=== PATIENT | female | born 1960 | race Caucasian/White ===

== ENCOUNTER → 2016-04-11 | Outpatient (CLI) | payer BC, OTHER ==
[~2016-04-11] MED LIST: ACHD5005 PO; CETI-176 PO; CHOL2000 PO; CITA20TA4 PO; CRAN1TAB PO; CYAN500T2 PO; DICY10CA59 PO; I COOL PO; LACT1CAP69 PO; LVT.1T PO; MULT1CAP27 PO; PEPPERMINT PO; [UNRECOGNIZED DRUG - CODE] PO
--- OUTSIDE RECORDS SUMMARY | 2016-04-11 10:54 | XMS REPORT | Continuity of Care Document ---
Author Author [facility] Organization [facility] Address Unknown Phone Unavailable Care Team Providers Care Lab Support Technician Name Role Phone Unknown, Unknown PCP Unavailable Source Comments Some departments are not documenting in the electronic medical record. If you do not see the information that you expected, contact Release of Information in the Health Information Management department at [phone] for further assistance in locating additional records.[facility] Active Allergies and Adverse Reactions No Known Allergies Current Medications Prescription Sig. Disp. Refills Start End Date Status Date Black Cohosh 20 mg tab Take by mouth. Active PEPPERMINT OIL PO Take by mouth. Active ERGOCALCIFEROL (VITAMIN Take by mouth. Active D2) (VITAMIN D PO) cyanocobalamin(+) Take 100 mcg by mouth Active (VITAMIN B-12) 100 mcg daily. tablet dicyclomine (BENTYL) 10 Take 10 mg by mouth four Active mg capsule times daily. LORATADINE (CLARITIN PO) Take by mouth. Active lactobacillus rhamnosus Take 1 Cap by mouth twice Active GG (LACTOBACILLUS daily with meals. RHAMNOSUS (GG)) 15 billion cell cpSP citalopram (CELEXA) 10 mg Take 10 mg by mouth Active tablet daily. MULTIVITAMINS WITH Take by mouth. Active FLUORIDE (MULTI-VITAMIN PO) Cranberry 400 mg cap Take by mouth. Active Active Problems Not on file Social History Tobacco Use Types Packs/Day Years Used Date Never Smoker Smokeless Tobacco: Never Used Alcohol Use Drinks/Week oz/Week Comments No Last Filed Vital Signs Vital Sign Reading Time Taken Blood Pressure 142/78 06/02/2014 10:05 AM CDT Pulse 65 06/02/2014 10:05 AM CDT Temperature 36.7 C (98 F) 06/02/2014 10:05 AM CDT Respiratory Rate 18 06/02/2014 10:05 AM CDT Height 1.695 m (5' 6.73") 06/02/2014 10:05 AM CDT Weight 110.315 kg (243 lb 3.2 06/02/2014 10:05 AM CDT oz) Body Mass Index 38.4 06/02/2014 10:05 AM CDT Oxygen Saturation 97% 06/02/2014 10:05 AM CDT Plan of Care Health Maintenance Due Date Last Done Comments Physical (Comprehensive) 1969 Exam Pertussis Vaccine 1973 Tetanus Vaccine 11/25/1979 Cervical Cancer Screening 11/25/1983 Breast Cancer Screening 2002 Colorectal Cancer 2012 Screening Influenza Vaccine 11/18/2015 Results from Last 3 Months Not on file
== END ==
LOC: FS 10:50
PROVIDERS: ATTEND Internal Medicine Hematology & Oncology
DX: C73 Malignant neoplasm of thyroid gland (principal); E89.0 Postprocedural hypothyroidism; Z79.899 Other long term (current) drug therapy
CPT/HCPCS: 99213

== ENCOUNTER → 2016-07-11 | Outpatient (CLI) | payer OTHER | LOC: FS 10:28 | PROVIDERS: ATTEND Internal Medicine Hematology & Oncology | DX: C73 Malignant neoplasm of thyroid gland (principal); E89.0 Postprocedural hypothyroidism; Z79.899 Other long term (current) drug therapy | CPT/HCPCS: 99213 ==

== ENCOUNTER 2017-01-09 11:40 | Outpatient (RCR) | payer OTHER | END 2017-04-09 | disposition home or self-care (01) | LOC: ONC 11:40 | PROVIDERS: ATTEND Internal Medicine Hematology & Oncology | DX: C73 Malignant neoplasm of thyroid gland (principal); E89.0 Postprocedural hypothyroidism; Z79.899 Other long term (current) drug therapy | CPT/HCPCS: 99213 ==

== ENCOUNTER 2017-07-10 12:38 | Outpatient (RCR) | payer OTHER | END 2017-10-08 | disposition home or self-care (01) | LOC: ONC 12:38 | PROVIDERS: ATTEND Internal Medicine Hematology & Oncology | DX: C73 Malignant neoplasm of thyroid gland (principal); E89.0 Postprocedural hypothyroidism; D72.820 Lymphocytosis (symptomatic); Z79.899 Other long term (current) drug therapy | CPT/HCPCS: 99213 ==

== ENCOUNTER 2017-12-31 12:45 | Outpatient (RCR) | payer OTHER | END 2018-03-31 | disposition home or self-care (01) | LOC: ONC 12:45 | PROVIDERS: ATTEND Internal Medicine Hematology & Oncology | DX: C73 Malignant neoplasm of thyroid gland (principal); E89.0 Postprocedural hypothyroidism; Z79.899 Other long term (current) drug therapy | CPT/HCPCS: 99213 ==

== ENCOUNTER 2018-08-14 09:16 | Outpatient (RCR) | payer BC, OTHER ==
[2018-06-17 11:44] LABS: BASOPHILS % (AUTO) 0 % (0-10); EOSINOPHILS # (AUTO) 0.3 10^3/uL (0.0-0.3); EOSINOPHILS % (AUTO) 4 % (0-10); HEMATOCRIT 38 % (35-52); HEMOGLOBIN 13.2 G/DL (11.5-16.0); LYMPHOCYTES # (AUTO) 2.4 X 10^3 (1.0-4.0); LYMPHOCYTES % (AUTO) 31 % (12-44); MEAN CORPUSCULAR HEMOGLOBIN 29 PG (25-34); MEAN CORPUSCULAR HGB CONC 35 G/DL (32-36); MEAN CORPUSCULAR VOLUME 84 FL (80-99); MEAN PLATELET VOLUME 9.8 FL (7.4-10.4); MONOCYTES # (AUTO) 0.6 X 10^3 (0.0-1.0); MONOCYTES % (AUTO) 7 % (0-12); NEUTROPHILS # (AUTO) 4.5 X 10^3 (1.8-7.8); NEUTROPHILS % (AUTO) 57 % (42-75); PLATELET COUNT 292 10^3/uL (130-400); RED CELL DISTRIBUTION WIDTH 13.1 % (10.0-14.5); WHITE BLOOD COUNT 7.8 10^3/uL (4.3-11.0)
[2018-06-17 12:02] LABS: ALANINE AMINOTRANSFERASE 28 U/L (0-55); ALBUMIN 4.2 GM/DL (3.2-4.5); ALKALINE PHOSPHATASE 84 U/L (40-136); BILIRUBIN,TOTAL 0.2 MG/DL (0.1-1.0); BUN/CREATININE RATIO 20; CALCIUM 9.6 MG/DL (8.5-10.1); CARBON DIOXIDE 25 MMOL/L (21-32); CHLORIDE 107 MMOL/L (98-107); CREATININE SERUM 0.69 MG/DL (0.60-1.30); GFR ESTIMATED > 60; GLUCOSE 81 MG/DL (70-105); SODIUM 141 MMOL/L (135-145); TOTAL PROTEIN 7.4 GM/DL (6.4-8.2)
== END 2018-09-15 | disposition home or self-care (01) ==
LOC: ONC 09:16
PROVIDERS: ATTEND Internal Medicine Hematology & Oncology
DX: C73 Malignant neoplasm of thyroid gland (principal); E89.0 Postprocedural hypothyroidism; Z79.899 Other long term (current) drug therapy
CPT/HCPCS: 36415; 80053; 84432; 84443; 85025; 86800; 88184; 88185; 99213

== ENCOUNTER 2018-12-30 13:37 | Outpatient (RCR) | payer BC ==
[2018-12-23 15:06] LABS: BASOPHILS # (AUTO) 0.1 10^3/uL (0.0-0.1); BASOPHILS % (AUTO) 1 % (0-10); EOSINOPHILS # (AUTO) 0.3 10^3/uL (0.0-0.3); EOSINOPHILS % (AUTO) 4 % (0-10); HEMATOCRIT 40 % (35-52); HEMOGLOBIN 13.5 G/DL (11.5-16.0); LYMPHOCYTES # (AUTO) 3.3 X 10^3 (1.0-4.0); LYMPHOCYTES % (AUTO) 41 % (12-44); MEAN CORPUSCULAR HEMOGLOBIN 29 PG (25-34); MEAN CORPUSCULAR HGB CONC 34 G/DL (32-36); MEAN CORPUSCULAR VOLUME 86 FL (80-99); MEAN PLATELET VOLUME 9.7 FL (7.4-10.4); MONOCYTES # (AUTO) 0.6 X 10^3 (0.0-1.0); MONOCYTES % (AUTO) 7 % (0-12); NEUTROPHILS # (AUTO) 3.7 X 10^3 (1.8-7.8); NEUTROPHILS % (AUTO) 47 % (42-75); PLATELET COUNT 288 10^3/uL (130-400); RED CELL DISTRIBUTION WIDTH 12.2 % (10.0-14.5)
[2018-12-23 15:24] LABS: ALANINE AMINOTRANSFERASE 22 U/L (0-55); ALBUMIN 4.3 GM/DL (3.2-4.5); ALKALINE PHOSPHATASE 85 U/L (40-136); BILIRUBIN,TOTAL 0.6 MG/DL (0.1-1.0); BUN/CREATININE RATIO 16; CALCIUM 9.4 MG/DL (8.5-10.1); CARBON DIOXIDE 32 MMOL/L (21-32); CHLORIDE 104 MMOL/L (98-107); CREATININE SERUM 0.79 MG/DL (0.60-1.30); GFR ESTIMATED > 60; GLUCOSE 92 MG/DL (70-105); POTASSIUM 3.9 MMOL/L (3.6-5.0); SODIUM 143 MMOL/L (135-145); TOTAL PROTEIN 7.3 GM/DL (6.4-8.2)
== END 2019-03-23 | disposition home or self-care (01) ==
LOC: ONC 13:37
PROVIDERS: ATTEND Internal Medicine Hematology & Oncology
DX: C73 Malignant neoplasm of thyroid gland (principal)
CPT/HCPCS: 36415; 80053; 84432; 84443; 85025; 86800; 99213

== ENCOUNTER → 2020-01-05 | Outpatient (CLI) | payer BC | LOC: EDSTATUS 03-24 14:15 → ONC 12:52 | PROVIDERS: ATTEND Internal Medicine Hematology & Oncology | DX: C73 Malignant neoplasm of thyroid gland (principal); E89.0 Postprocedural hypothyroidism; Z79.899 Other long term (current) drug therapy | CPT/HCPCS: 99213 ==

== ENCOUNTER → 2020-02-04 | Outpatient (CLI) | payer BC ==
[~2020-02-04] MED LIST changes: +BARIUM for suspension 96% w/w (Vanilla Silq Medium Density) PO ONE; +BARIUM for suspension 98% w/w (Vanilla Silq High Density) PO ONE
--- NOTE | 2020-02-04 11:15 | Diagnostic Imaging Report ---
INDICATION: Dysphagia. TECHNIQUE: The patient ingested effervescent crystals as well as thin and thick barium and imaging over the esophagus was performed in multiple obliquities. 1 minute and 1 second of fluoroscopic time was utilized. FINDINGS: The preliminary radiograph of the chest is unremarkable. The esophagus has a smooth contour. No mass or stricture is identified. No hiatal hernia or gastroesophageal reflux is demonstrated. IMPRESSION: Unremarkable esophagram. Dictated by: Dictated on workstation # [id number]
== END ==
LOC: RAD 10:15
PROVIDERS: ATTEND Otolaryngology Otolaryngology/Facial Plastic Surgery
DX: R13.10 Dysphagia, unspecified (principal)
CPT/HCPCS: 74220

== ENCOUNTER → 2020-03-03 | Outpatient (CLI) | payer BC ==
[~2020-03-03] MED LIST changes: -BARIUM for suspension 96% w/w (Vanilla Silq Medium Density) PO ONE; -BARIUM for suspension 98% w/w (Vanilla Silq High Density) PO ONE
--- NOTE | 2020-03-03 11:37 | Diagnostic Imaging Report ---
PROCEDURE: CT sinuses without contrast TECHNIQUE: Multiple contiguous axial images were obtained through the sinuses without the use of intravenous contrast. Coronal and sagittal reformations were then performed. Auto Exposure Controls were utilized during the CT exam to meet ALARA standards for radiation dose reduction. INDICATION: Chronic sinusitis There are no prior studies available for comparison. There is moderate mucosal thickening of the floor of each maxillary antrum. Mucosal thickening measures approximately 4 mm. The osteomeatal complex on the right also seems to be occluded by mucosal thickening. The osteomeatal complex on the left seems patent. The sinuses are otherwise generally clear and well aerated. There is no fracture or acute bony abnormality identified. The orbits are symmetrical within normal limits. The intracranial contents where visualized are unremarkable. IMPRESSION: 1. There is bilateral maxillary sinusitis. The sinuses are otherwise generally clear. 2. There is no acute abnormality noted otherwise. 3. The nasal septum is deviated to the right. Dictated by: Dictated on workstation # [id number]
== END ==
LOC: RAD FS 09:40
PROVIDERS: ATTEND Otolaryngology Otolaryngology/Facial Plastic Surgery
DX: J32.0 Chronic maxillary sinusitis (principal); J34.2 Deviated nasal septum
CPT/HCPCS: 70486

== ENCOUNTER → 2020-03-03 | Outpatient (CLI) | payer BC | LOC: LAB FS 10:07 | PROVIDERS: ATTEND Internal Medicine Hematology & Oncology | DX: C73 Malignant neoplasm of thyroid gland (principal) | CPT/HCPCS: 36415; 84443 ==

== ENCOUNTER 2020-04-29 05:37 | Outpatient (RCR) | payer BC ==
[~2020-04-29] VITALS: Ht 170.2 cm; Wt 113.5 kg
== END 2020-05-04 12:11 | disposition home or self-care (01) ==
LOC: PREOP 05:37
PROVIDERS: ATTEND Otolaryngology Otolaryngology/Facial Plastic Surgery
DX: Z01.812 Encounter for preprocedural laboratory examination (principal); J32.9 Chronic sinusitis, unspecified; J34.3 Hypertrophy of nasal turbinates; Z20.822 Contact with and (suspected) exposure to COVID-19

== ENCOUNTER → 2020-04-30 | Outpatient (CLI) | payer BC | LOC: LAB FS 10:00 | PROVIDERS: ATTEND Otolaryngology Otolaryngology/Facial Plastic Surgery | DX: Z01.812 Encounter for preprocedural laboratory examination (principal); J32.9 Chronic sinusitis, unspecified; J34.3 Hypertrophy of nasal turbinates; Z20.822 Contact with and (suspected) exposure to COVID-19 | CPT/HCPCS: 87635 ==

== ENCOUNTER 2020-05-06 06:37 | Day surgery (SDC) | payer BC ==
[~2020-05-06] VITALS: Ht 170.2 cm; Wt 113.5 kg
[2020-05-06] VITALS (11 sets, daily range): BP systolic 109–135; BP diastolic 54–74
[2020-05-06] MEDS ORDERED: fentaNYL INJECTION 100 MCG/2 ML AMP ONE (07:06)
[2020-05-06] MEDS ORDERED: MIDAZOLAM 2 MG/2 ML (VERSED) VIAL ONE (07:06)
[2020-05-06] MEDS ORDERED: SEVOFLURANE (ULTANE) 15 ML INHAL SOLN ONE ×2 (07:15→08:25)
[2020-05-06] MEDS ORDERED: HYDROCORTISONE 100 MG/2 ML (Solu-CORTEF) VIAL IV ONE (07:15)
[2020-05-06] MEDS ORDERED: proPOfol 200 MG/20 ML (DIPRIVAN) VIAL IV ONE (07:15)
[2020-05-06] MEDS ORDERED: COCAINE HCL 4% 2 ML SYR ONE (07:15)
[2020-05-06] MEDS ORDERED: BSS 15 ML ONE (07:15)
[2020-05-06] MEDS ORDERED: LIDOCAINE PF 2% 5 ML (XYLOCAINE) VIAL ONE (07:15)
[2020-05-06] MEDS ORDERED: AMPICILLIN/SULBACTAM INJECTION 1.5 GM in NS (IVPB) 100 ML IV ONE (07:15)
[2020-05-06] MEDS ORDERED: ONDANSETRON 4 MG/2 ML (SDV) Z0FRAN ONE (07:15)
[2020-05-06] MEDS ORDERED: PHENYLEPHRINE 0.5% NASAL SPR (NEO-SYNEPHRINE) REG ONE (07:16)
[2020-05-06] MEDS ORDERED: LIDOCAINE/EPI 1%-1:100,000 (XYLOCAINE) 50 ML ONE (07:16)
[2020-05-06] MEDS ORDERED: ROCURONIUM 10 MG/ML 5 ML SYRINGE IV ONE (07:18)
[2020-05-06 07:21] LABS: BASOPHILS # (AUTO) 0.1 10^3/uL (0.0-0.1); BASOPHILS % (AUTO) 1 % (0-10); EOSINOPHILS # (AUTO) 0.3 10^3/uL (0.0-0.3); EOSINOPHILS % (AUTO) 3 % (0-10); HEMATOCRIT 40 % (35-52); HEMOGLOBIN 13.8 g/dL (11.5-16.0); LYMPHOCYTES # (AUTO) 4.9 10^3/uL (1.0-4.0); LYMPHOCYTES % (AUTO) 42 % (12-44); MEAN CORPUSCULAR HEMOGLOBIN 30 pg (25-34); MEAN CORPUSCULAR HGB CONC 35 g/dL (32-36); MEAN CORPUSCULAR VOLUME 85 fL (80-99); MEAN PLATELET VOLUME 9.4 fL (9.0-12.2); MONOCYTES # (AUTO) 0.8 10^3/uL (0.0-1.0); MONOCYTES % (AUTO) 7 % (0-12); NEUTROPHILS # (AUTO) 5.5 10^3/uL (1.8-7.8); NEUTROPHILS % (AUTO) 48 % (42-75); PLATELET COUNT 311 10^3/uL (130-400); WHITE BLOOD COUNT 11.5 10^3/uL (4.3-11.0)
[2020-05-06] MEDS ORDERED: LACTATED RINGERS 1,000 ML IV PRN (07:30)
[2020-05-06 07:37] LABS: BUN/CREATININE RATIO 20; CALCIUM 9.6 MG/DL (8.5-10.1); CARBON DIOXIDE 25 MMOL/L (21-32); CHLORIDE 103 MMOL/L (98-107); GFR ESTIMATED > 60; GLUCOSE 92 MG/DL (70-105); POTASSIUM 3.9 MMOL/L (3.6-5.0); SODIUM 140 MMOL/L (135-145)
--- NOTE | 2020-05-06 08:37 | Progress Note-Pre Operative ---
Pre-Operative Progress Note H&P Reviewed The H&P was reviewed, patient examined and no changes noted. Date Seen by Provider: May 06, 2020 Time Seen by Provider: 07:30 Date H&P Reviewed: May 06, 2020 Time H&P Reviewed: 07:30 Pre-Operative Diagnosis: Bilat Chronic Sinusitis, Bilat Hyper of INf Turbs [place] AVILA MD May 06, 2020 08:37
--- NOTE | 2020-05-06 08:38 | Progress Note-Post Operative ---
Post-Operative Progess Note Surgeon (s)/Oim Consultant (s) Surgeon [place] AVILA MD Oim Consultant n/a Pre-Operative Diagnosis Bilat Chronic Sinusitis, Bilat Hyper of INf Turbs Post-Operative Diagnosis same Post-Op Procedure Note Date of Procedure: May 06, 2020 Name of Procedure Performed: Bilat Ess, Bilat Red of Inf Turbs Description & Findings Description and Findings: n/a Anesthesia Type get Estimated Blood Loss minimal Packing none. Specimen(s) collected/removed bilat Chornic Sinus disease [place] AVILA MD May 06, 2020 08:38
[2020-05-06] MEDS ORDERED: NEOSTIGMINE 3 MG/3 ML VIAL ONE (08:44)
[2020-05-06] MEDS ORDERED: GLYCOPYRROLATE 0.2 MG/ML (ROBINUL) 2 ML VIAL ONE (08:44)
[2020-05-06] MEDS ORDERED: HYDROcodone/APAP 5 MG/325 MG (LORTAB) TAB PO PRN (08:45)
[2020-05-06] MEDS ORDERED: predniSONE 20 MG TAB PO ONE (08:45)
[2020-05-06] MEDS ORDERED: ACETAMINOPHEN 325 MG TABLET PO PRN (08:45)
[2020-05-06] MEDS ORDERED: D5 1/2 NS W/KCL 20 MEQ/L 1,000 ML IV SCH (08:45)
[2020-05-06] MEDS ORDERED: morphine INJ 10 MG/ML 1ML (SYR OR VIAL) IVP ONE (09:00)
[2020-05-06] MEDS ORDERED: fentaNYL INJECTION 100 MCG/2 ML AMP IVP ONE (09:00)
[2020-05-06] MEDS ORDERED: ONDANSETRON 4 MG/2 ML (SDV) Z0FRAN IVP PRN (09:00)
[2020-05-06] MEDS: PROMETHAZINE INJ 25 MG/ML (PHENERGAN) AMP IVP PRN ×2 (09:46→09:47)
[2020-05-06] MEDS ORDERED: ACHD5005 PO (10:06)
[2020-05-06] MEDS ORDERED: AMOX-355 PO (10:06)
[2020-05-06] MEDS ORDERED: PRD20T PO (10:06)
--- NOTE | 2020-05-06 10:10 | Anesthesia-General Post-Op ---
General Patient Condition Mental Status/LOC: Same as Preop Cardiovascular: Satisfactory Nausea/Vomiting: Absent Respiratory: Satisfactory Pain: Controlled Complications: Absent Post Op Complications Complications None Follow Up Care/Instructions Patient Instructions None needed. Anesthesia/Patient Condition Patient Condition Patient is doing well, no complaints, stable vital signs, no apparent adverse anesthesia problems. No complications reported per nursing. ARCHIE SAINZ CRNA May 06, 2020 10:10
[2020-05-06] MEDS ORDERED: predniSONE 20 MG TAB ONE (10:17)
== END 2020-05-06 10:45 ==
LOC: SDC 06:37
PROVIDERS: ATTEND Otolaryngology Otolaryngology/Facial Plastic Surgery
DX: J32.9 Chronic sinusitis, unspecified (principal); J34.3 Hypertrophy of nasal turbinates; R09.81 Nasal congestion; G47.33 Obstructive sleep apnea (adult) (pediatric); K21.9 Gastro-esophageal reflux disease without esophagitis; E66.9 Obesity, unspecified; Z68.39 Body mass index [BMI] 39.0-39.9, adult; Z79.899 Other long term (current) drug therapy; Z88.2 Allergy status to sulfonamides; Z88.1 Allergy status to other antibiotic agents
CPT/HCPCS: 36415; 80048; 85025; 87081; 93005

== ENCOUNTER → 2021-01-27 | Outpatient (CLI) | payer BC ==
[~2021-01-27] MED LIST changes: +AMOX-355 PO; +PRD20T PO
--- NOTE | 2021-01-27 11:42 | Diagnostic Imaging Report ---
PROCEDURE: CT head without contrast. TECHNIQUE: Multiple contiguous axial images were obtained through the brain without the use of intravenous contrast. Auto Exposure Controls were utilized during the CT exam to meet ALARA standards for radiation dose reduction. INDICATION: Fall two weeks ago with intermittent headache and dizziness. COMPARISON: No prior studies are available for comparison. FINDINGS: Ventricles and sulci are within normal limits. No sulcal effacement or midline shift is identified. No acute intra-axial or extra-axial hemorrhage is detected. Cisterns are patent. The visualized paranasal sinuses are clear. IMPRESSION: No acute intracranial process is detected. Dictated by: Dictated on workstation # [id number]
== END ==
LOC: RAD FS 10:59
PROVIDERS: ATTEND Family Medicine
DX: G44.52 New daily persistent headache (NDPH) (principal); R42 Dizziness and giddiness; W19.XXXA Unspecified fall, initial encounter
CPT/HCPCS: 70450

== ENCOUNTER → 2021-01-28 | Outpatient (CLI) | payer BC ==
[2021-01-28 14:20] LABS: BASOPHILS # (AUTO) 0.1 10^3/uL (0.0-0.1); BASOPHILS % (AUTO) 1 % (0-10); EOSINOPHILS # (AUTO) 0.3 10^3/uL (0.0-0.3); EOSINOPHILS % (AUTO) 3 % (0-10); HEMATOCRIT 42 % (35-52); HEMOGLOBIN 14.3 g/dL (11.5-16.0); LYMPHOCYTES # (AUTO) 4.2 10^3/uL (1.0-4.0); LYMPHOCYTES % (AUTO) 35 % (12-44); MEAN CORPUSCULAR HEMOGLOBIN 30 pg (25-34); MEAN CORPUSCULAR HGB CONC 34 g/dL (32-36); MEAN CORPUSCULAR VOLUME 87 fL (80-99); MEAN PLATELET VOLUME 9.3 fL (9.0-12.2); MONOCYTES # (AUTO) 0.7 10^3/uL (0.0-1.0); MONOCYTES % (AUTO) 6 % (0-12); NEUTROPHILS # (AUTO) 6.6 10^3/uL (1.8-7.8); NEUTROPHILS % (AUTO) 55 % (42-75); PLATELET COUNT 319 10^3/uL (130-400); WHITE BLOOD COUNT 11.9 10^3/uL (4.3-11.0)
[2021-01-28 15:01] LABS: ALBUMIN 4.4 GM/DL (3.2-4.5); BILIRUBIN,TOTAL 0.4 MG/DL (0.1-1.0); CALCIUM 9.8 MG/DL (8.5-10.1); CREATININE SERUM 0.74 MG/DL (0.60-1.30); POTASSIUM 3.9 MMOL/L (3.6-5.0); TOTAL PROTEIN 7.7 GM/DL (6.4-8.2)
== END ==
LOC: ONC 14:07
PROVIDERS: ATTEND Internal Medicine Hematology & Oncology
DX: C73 Malignant neoplasm of thyroid gland (principal); E89.0 Postprocedural hypothyroidism; E66.9 Obesity, unspecified; Z90.89 Acquired absence of other organs
CPT/HCPCS: 80053; 84432; 84443; 85025; 86800; G0463; 99213

== ENCOUNTER 2021-04-06 05:35 | Outpatient (CLI) | payer BC ==
[~2021-04-06] VITALS: Ht 170.2 cm; Wt 118.0 kg
[2021-04-07] MEDS ORDERED: DICY20TA PO (09:33)
[2021-04-07] MEDS ORDERED: GABA300S2 PO (09:33)
[2021-04-07] MEDS ORDERED: PEPP90CA PO (09:33)
[2021-04-07] MEDS ORDERED: CITA40TA13 PO (09:33)
[2021-04-07] MEDS ORDERED: LEVO125T PO (09:33)
== END 2021-04-07 12:01 | disposition home or self-care (01) ==
LOC: PREOP 05:35
PROVIDERS: ATTEND Surgery
DX: Z01.818 Encounter for other preprocedural examination (principal)

== ENCOUNTER → 2021-04-11 | Outpatient (CLI) | payer BC ==
[~2021-04-11] MED LIST changes: +CITA40TA13 PO; +DICY20TA PO; +GABA300S2 PO; +LEVO125T PO; +METO5TAB75 PO; +PANT40TA2 PO; +PEPP90CA PO
== END ==
LOC: LAB FS 10:12
PROVIDERS: ATTEND Surgery
DX: Z01.812 Encounter for preprocedural laboratory examination (principal); R13.10 Dysphagia, unspecified; Z20.822 Contact with and (suspected) exposure to COVID-19
CPT/HCPCS: 87635

== ENCOUNTER 2021-04-13 08:46 | Day surgery (SDC) | payer BC ==
[~2021-04-13] VITALS: Ht 170.2 cm; Wt 118.0 kg
[~2021-04-13 08:46] MED LIST changes: -METO5TAB75 PO; -PANT40TA2 PO
[2021-04-13] MEDS ORDERED: LACTATED RINGERS 1,000 ML IV STA (08:48)
[2021-04-13] MEDS ORDERED: LACTATED RINGERS 1,000 ML IV ONE (08:50)
[2021-04-13] MEDS ORDERED: HURRICAINE EXT TUBE (BENZOCAINE) XX PRN (09:00)
[2021-04-13 09:10] VITALS: BP 155/78
[2021-04-13] MEDS ORDERED: proPOfol 200 MG/20 ML (DIPRIVAN) VIAL IV ONE ×2 (09:39→10:15)
[2021-04-13] MEDS ORDERED: MIDAZOLAM 2 MG/2 ML (VERSED) VIAL ONE (09:39)
[2021-04-13] MEDS ORDERED: LIDOCAINE JELLY 2% 6 ML SYRINGE ONE (09:56)
--- NOTE | 2021-04-13 10:02 | Progress Note-Pre Operative ---
Pre-Operative Progress Note H&P Reviewed The H&P was reviewed, patient examined and no changes noted. Date Seen by Provider: Apr 13, 2021 Time Seen by Provider: : Date H&P Reviewed: Apr 13, 2021 Time H&P Reviewed: : Pre-Operative Diagnosis: dysphagia MIK VANG MD Apr 13, 2021 10:02
[2021-04-13] MEDS ORDERED: PANT40TA2 PO (10:03)
--- NOTE | 2021-04-13 10:04 | Discharge Inst-Surgical ---
D/C Lap Instructions-KIDO New, Converted, or Re-Newed RX: RX on Chart Follow Up Activity as tolerated High Fiber Diet 25g or more per day Avoid Alcohol, Caffeine, Spicy [place] and Acid foods. Drink 64 fluid oz or more of fluids per day. Symptoms to Report: Fever over 101 degree F, Nausea/Vomiting If any problems/questions: Contact your physician or go to Emergency Room MIK VANG MD Apr 13, 2021 10:03
[2021-04-13] MEDS ORDERED: ONDANSETRON 4 MG/2 ML (SDV) Z0FRAN IVP PRN (10:15)
[2021-04-13] MEDS ORDERED: ONDANSETRON 4 MG (ZOFRAN) ORAL DISSOLVE TAB PO PRN (10:15)
[2021-04-13] MEDS ORDERED: LIDOCAINE JELLY 2% 6 ML SYRINGE TOP ONE (10:15)
--- NOTE | 2021-04-13 10:29 | Anesthesia-General Post-Op ---
MAC Patient Condition Mental Status/LOC: Same as Preop Cardiovascular: Satisfactory Nausea/Vomiting: Absent Respiratory: Satisfactory Pain: Controlled Complications: Absent Post Op Complications Complications None Follow Up Care/Instructions Patient Instructions None needed. Anesthesiology Discharge Order Discharge Order Patient is doing well, no complaints, stable vital signs, no apparent adverse anesthesia problems. No complications reported per nursing. ARCHIE SAINZ CRNA Apr 13, 2021 10:29
[2021-04-13 10:30] VITALS: BP 136/65
[2021-04-13 10:33] VITALS: BP 142/69
[2021-04-13 10:35] VITALS: BP 142/69
[2021-04-13] MEDS ORDERED: METO5TAB75 PO (10:46)
[2021-04-13 11:04] VITALS: BP 118/61
[2021-04-13 11:05] VITALS: BP 118/61
--- NOTE | 2021-04-13 14:14 | OPERATIVE REPORT ---
DATE OF SERVICE: 04/13/2021 ATTENDING PRIMARY CARE PHYSICIAN: Dr. Les Nelson. PREOPERATIVE DIAGNOSIS: Dysphagia. POSTOPERATIVE DIAGNOSES: Reflux esophagitis [place] grade B, small type 1 hiatal hernia approximately 2.5 cm in size, retained food substance within the stomach, likely indicating a gastroparesis, mild to moderate gastritis. No distal obstructions. PROCEDURE: EGD with biopsy. SURGEON: Mik Vang MD ANESTHESIA: Monitored anesthesia care. ESTIMATED BLOOD LOSS: Minimal. FINDINGS: Same as postoperative diagnoses. DISPOSITION: The patient tolerated the procedure well. INDICATIONS: The patient is a 60-year-old female with history of developmental delay. She was seen in the office and accompanied by her mother and reports that she has had difficulty swallowing for the past year of all types of foods. She has had a history of thyroid cancer requiring a total thyroidectomy in 2013. They do not report any classic symptoms of gastroesophageal reflux disease as well as no ilda episodes of nausea, no vomiting as well as no hematemesis. DESCRIPTION OF PROCEDURE: The patient was brought to the endoscopy suite, laid in left lateral decubitus position. After adequate IV pain and sedative medications and monitored anesthesia care, the mouthpiece was applied. The endoscope was placed in the mouth, visualizing the pharynx and hypopharyngeal region. Vocal cords, epiglottis and vallecula identified and appeared to be normal. The endoscope was then gently intubated, esophageal opening and esophagus insufflated. The endoscope was then advanced through the first, second and third portion of esophagus at the level of the GE junction, reflux esophagitis [place] grade B identified. There were no strictures identified. A biopsy was taken with forceps with visualization of good hemostasis. The endoscope was then advanced into the stomach and endoscope retroflexed, visualizing a small type 1 hiatal hernia approximately 2.5 cm in size. There was retained food substance within the stomach, likely indicating some level of gastroparesis. There was a mild to moderate gastritis. No formal ulcerations, polyps, or any neoplasms. A biopsy was taken of the antrum to rule out H. pylori with visualization of good hemostasis. The endoscope was then advanced to the pylorus and the first and second portion of the duodenum, which appeared normal with no distal obstructions. The endoscope was then slowly withdrawn while taking a second look and suctioning of residual air with no additional findings. The patient tolerated the procedure well. We will recommend the necessary dietary lifestyle accommodation including small and more frequent meals, avoiding to eating at night as well as head elevation while lying supine. Job ID: [id number] DocumentID: [id number] Dictated Date: 04/13/2021 10:28:26 Mdm Developer Date: 04/13/2021 14:13:21 Dictated By: MIK VANG MD
== END 2021-04-13 11:15 | disposition home or self-care (01) ==
LOC: ENDO 08:46
PROVIDERS: ATTEND Surgery
DX: K21.00 Gastro-esophageal reflux disease with esophagitis, without bleeding (principal); K44.9 Diaphragmatic hernia without obstruction or gangrene; K29.70 Gastritis, unspecified, without bleeding; R62.50 Unspecified lack of expected normal physiological development in childhood; E89.0 Postprocedural hypothyroidism; G47.33 Obstructive sleep apnea (adult) (pediatric); Z85.850 Personal history of malignant neoplasm of thyroid; Z79.890 Hormone replacement therapy; Z99.81 Dependence on supplemental oxygen; Z80.0 Family history of malignant neoplasm of digestive organs
CPT/HCPCS: 88305

== ENCOUNTER → 2021-05-17 | Outpatient (CLI) | payer BC ==
[~2021-05-17] MED LIST changes: +METO5TAB75 PO; +PANT40TA2 PO
--- NOTE | 2021-05-17 13:53 | Diagnostic Imaging Report ---
INDICATION: Routine screening. COMPARISON: No prior mammograms are available for comparison. TECHNIQUE: 2D and 3D bilateral screening mammography was performed with CAD. FINDINGS: Scattered fibroglandular densities are identified bilaterally. No spiculated mass or malignant-appearing microcalcifications are seen. The axillae are unremarkable. IMPRESSION: No mammographic features suspicious for malignancy are identified. ACR BI-RADS Category 1: Negative. Result letter will be mailed to the patient. Note: At least 10% of breast cancer is not imaged by mammography. Dictated by: Dictated on workstation # [id number]
== END ==
LOC: RAD 09:00
PROVIDERS: ATTEND Family Medicine
DX: Z12.31 Encounter for screening mammogram for malignant neoplasm of breast (principal)
CPT/HCPCS: 77063; 77067

== ENCOUNTER → 2021-05-23 | Outpatient (CLI) | payer SELFPAY ==
--- NOTE | 2021-05-23 15:23 | Diagnostic Imaging Report ---
INDICATION: Coronary screening. TECHNIQUE: CT cardiac calcium scoring study performed with noncontrast images of the heart, followed by calculation of cardiac calcium score. Dose reduction protocol was used. FINDINGS: There are no enlarged nodes in the mediastinum or juancarlos. The thoracic aorta does not appear aneurysmal. There is no pleural or pericardial fluid. Heart is mildly enlarged. Visualized portions of the lung jane show no infiltrates or nodules. The entirety of the lung jane is not included on the study. There is no significant coronary artery calcification. Calcium score was 0 in all territories. IMPRESSION: Coronary calcium score was 0 in all territories. No significant coronary artery calcification. Dictated by: Dictated on workstation # [id number]
== END ==
LOC: RAD FS 13:45
PROVIDERS: ATTEND Family Medicine
DX: Z13.6 Encounter for screening for cardiovascular disorders (principal)
CPT/HCPCS: 75571

== ENCOUNTER → 2021-11-10 | Outpatient (CLI) | payer BC ==
[2021-11-10 12:00] LABS: ALANINE AMINOTRANSFERASE 86 U/L (0-55); ALBUMIN 4.7 GM/DL (3.2-4.5); ALKALINE PHOSPHATASE 98 U/L (40-136); BILIRUBIN,DIRECT < 0.2 MG/DL (0.0-0.3); BILIRUBIN,INDIRECT 0.2 MG/DL; BILIRUBIN,TOTAL 0.4 MG/DL (0.1-1.0); TOTAL PROTEIN 7.6 GM/DL (6.4-8.2)
== END ==
LOC: LAB FS 11:26
PROVIDERS: ATTEND Podiatrist Foot & Ankle Surgery
DX: B35.1 Tinea unguium (principal)
CPT/HCPCS: 36415; 80076

== ENCOUNTER → 2022-02-02 | Outpatient (CLI) | payer BC ==
[2022-02-02 12:07] LABS: BILIRUBIN,TOTAL 0.3 MG/DL (0.1-1.0)
[2022-02-02 12:08] LABS: ALANINE AMINOTRANSFERASE 43 U/L (0-55); ALBUMIN 4.3 GM/DL (3.2-4.5); ALKALINE PHOSPHATASE 90 U/L (40-136); BILIRUBIN,DIRECT < 0.2 MG/DL (0.0-0.3); BILIRUBIN,INDIRECT 0.1 MG/DL; TOTAL PROTEIN 7.4 GM/DL (6.4-8.2)
== END ==
LOC: LAB FS 11:26
PROVIDERS: ATTEND Podiatrist Foot & Ankle Surgery
DX: B35.1 Tinea unguium (principal)
CPT/HCPCS: 36415; 80076

== ENCOUNTER → 2022-05-24 | Outpatient (CLI) | payer BC ==
[2022-05-24 13:58] LABS: ALANINE AMINOTRANSFERASE 30 U/L (0-55); ALBUMIN 4.4 GM/DL (3.2-4.5); ALKALINE PHOSPHATASE 93 U/L (40-136); BILIRUBIN,DIRECT < 0.2 MG/DL (0.0-0.3); BILIRUBIN,INDIRECT 0.2 MG/DL; BILIRUBIN,TOTAL 0.4 MG/DL (0.1-1.0); TOTAL PROTEIN 7.5 GM/DL (6.4-8.2)
== END ==
LOC: LAB FS 13:17
PROVIDERS: ATTEND Podiatrist Foot & Ankle Surgery
DX: B35.1 Tinea unguium (principal)
CPT/HCPCS: 36415; 80076